=== PATIENT | male | born 2000 | race African-American/Black ===

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

== ENCOUNTER 2020-08-04 07:42 | Emergency (ER) | payer OTHER ==
[~2020-08-04] VITALS: Ht 172.7 cm; Wt 63.6 kg
[2020-08-04 07:51] VITALS: BP 139/89; Ht 172.7 cm; Wt 63.6 kg
[2020-08-04 08:14] LABS: BILIRUBIN NEGATIVE (NEGATIVE); KETONE NEGATIVE (NEGATIVE); NITRITE NEGATIVE (NEGATIVE); UROBILINOGEN NORMAL mg/dL (< 2)
[2020-08-04 08:16] LABS: BACTERIA FEW HPF (NONE SEEN)
== END 2020-08-04 09:09 | disposition home or self-care (01) ==
LOC: D.ER 07:42
PROVIDERS: Family Medicine
DX: R36.9 Urethral discharge, unspecified (principal); Z20.2 Contact with and (suspected) exposure to infections with a predominantly sexual mode of transmission